=== PATIENT | female | born 1990 | race Caucasian/White ===

== ENCOUNTER 2025-10-06 12:00 | Inpatient (IN) | payer OTHER ==
[~2025-10-06] VITALS: Ht 157.5 cm; Wt 49.9 kg
[2025-10-06] MEDS ORDERED: PHENOBARBITAL SODIUM 130 MG/1 ML DISP.SYRIN ONE (12:27)
[2025-10-06] MEDS: PHENOBARBITAL SODIUM 130 MG/1 ML DISP.SYRIN IV ONE (12:28)
[2025-10-06] MEDS: IV NORMAL SALINE 1000 ML BAG IV ONE (12:28)
[2025-10-06 13:03] LABS: PLATELET COUNT (AUTO) 403 K/uL (179-408); RED BLOOD CELL COUNT(AUTO) 4.13 MIL/uL (3.63-4.92); RED CELL DISTRIBUTION WIDTH 15.3 % (12.3-17.7); WHITE BLOOD COUNT (AUTO) 12.1 K/uL (3.8-11.8)
[2025-10-06 13:13] LABS: CREATININE 0.8 mg/dL (0.6-1.3); SODIUM SERUM 138 mmol/L (136-145); UREA NITROGEN, BLOOD 13 mg/dL (7-18)
[2025-10-06 13:18] LABS: ASPARTATE AMINOTRANSFERASE 69 U/L (15-37); TOTAL PROTEIN, SERUM 8.3 g/dL (6.4-8.2)
[2025-10-06 13:23] LABS: PREGNANCY TEST SERUM QUAN < 1 miul/L (0-6)
[2025-10-06 13:24] LABS: ETHANOL 45.0 MG/DL (0-10)
[2025-10-06 13:25] VITALS: BP 111/79
[2025-10-06 13:32] LABS: LACTIC ACID 5.3 mmol/L (0.4-2.0)
[2025-10-06] MEDS ORDERED: METOCLOPRAMIDE HCL 10 MG/2 ML VIAL ONE (13:37)
[2025-10-06] MEDS ORDERED: diphenhydrAMINE 50 MG/1 ML VIAL ONE (13:37)
[2025-10-06 13:38] LABS: IRON, SERUM 123 ug/dL (50-175)
[2025-10-06] MEDS: diphenhydrAMINE 50 MG/1 ML VIAL IV ONE (13:38)
[2025-10-06] MEDS: METOCLOPRAMIDE HCL 10 MG/2 ML VIAL IV ONE (13:40)
[2025-10-06] MEDS ORDERED: CEFTRIAXONE /D5W 50ML IVPB **ER PYXIS IV ONE (13:55)
[2025-10-06 14:12] LABS: *BILIRUBIN,URIN NEGATIVE (NEGATIVE); *BLOOD, URINE 1+ (NEGATIVE); *COLOR,URINE LIGHT YELLOW (YELLOW); *KETONES,URINE 4+ (NEGATIVE); *PROTEIN,URINE NEGATIVE (NEGATIVE); *UROBILINOGEN,URINE 0.2 E.U./dl (NORMAL); LEUKOCYTE ESTERASE ,URINE NEGATIVE (NEGATIVE); NITRITE, URINE NEGATIVE (NEGATIVE); UGLUCOSE NEGATIVE (NEGATIVE)
[2025-10-06 14:14] LABS: *CLARITY,URINE HAZY (CLEAR)
[2025-10-06 14:24] LABS: *AMPHETAMINE, URINE NEGATIVE (NEGATIVE); *BARBITURATE, URINE POSITIVE (NEGATIVE); *BENZODIAZEPINE, URINE NEGATIVE (NEGATIVE); *CANNABINOID, URINE POSITIVE (NEGATIVE); *COCCAINE, URINE NEGATIVE (NEGATIVE); *OPIATE, URINE NEGATIVE (NEGATIVE); *PHENCYCLIDINE SCREEN,URINE NEGATIVE (NEGATIVE); FENTANYL, URINE NEGATIVE (NEGATIVE)
[2025-10-06 14:29] LABS: SQUAMOUS EPITHELIAL CELL,UR MODERATE /HPF (NONE SEEN)
[2025-10-06] MEDS ORDERED: NICOTINE 21 MG/24HR PATCH TD PRN (15:15)
[2025-10-06] MEDS ORDERED: LORAZEPAM 2 MG/1 ML VIAL IV PRN (15:15)
[2025-10-06] MEDS ORDERED: REMEDY ESSENTIAL ZINC PASTE 113 GM TP PRN (15:15)
[2025-10-06] MEDS ORDERED: MAGNESIUM HYDROXIDE 30 ML LIQUID UDC PO PRN (15:15)
[2025-10-06] MEDS: THIAMINE HCL INJ 100 MG in IV DEXTROSE 5% 50 ML IV SCH (15:22)
[2025-10-06] MEDS ORDERED: THIAMINE HCL 200 MG/2 ML VIAL ONE (15:24)
[2025-10-06] MEDS: IV D5 1/2 NS 1000 ML 1,000 ML IV SCH (15:31)
[2025-10-06] MEDS: FOLIC ACID 1 MG TABLET PO ONE (15:32)
[2025-10-06] MEDS ORDERED: FOLIC ACID 1 MG TABLET ONE (15:37)
[2025-10-06 16:18] VITALS: BP 128/71; TEMP 97.8; O2SAT 100
[2025-10-06] MEDS: CHLORDIAZEPOXIDE HCL 25 MG CAPSULE PO SCH (16:45)
[2025-10-06] MEDS ORDERED: THIAMINE HCL INJ 100 MG in IV DEXTROSE 5% 50 ML IV SCH (17:00)
[2025-10-06 19:15] VITALS: BP 111/70; TEMP 99.5; O2SAT 96
[2025-10-06] MEDS: ACETAMINOPHEN 325 MG TABLET PO PRN (21:14)
[2025-10-06] MEDS ORDERED: IBUPROFEN 400 MG TABLET PO PRN (21:30)
[2025-10-07] VITALS (7 sets, daily range): BP systolic 95–122; BP diastolic 56–76; TEMP 97.2–98.7; O2SAT 99–100
[2025-10-07] MEDS: ONDANSETRON 4 MG/2 ML VIAL IV PRN (05:25)
[2025-10-07] MEDS: PANTOPRAZOLE SODIUM 40 MG TABLET.DR PO SCH (06:10)
[2025-10-07 07:01] LABS: PLATELET COUNT (AUTO) 279 K/uL (179-408); RED BLOOD CELL COUNT(AUTO) 3.63 MIL/uL (3.63-4.92); RED CELL DISTRIBUTION WIDTH 14.5 % (12.3-17.7); WHITE BLOOD COUNT (AUTO) 7.3 K/uL (3.8-11.8)
[2025-10-07 07:04] LABS: CREATININE 0.5 mg/dL (0.6-1.3); SODIUM SERUM 133 mmol/L (136-145); UREA NITROGEN, BLOOD 5 mg/dL (7-18)
[2025-10-07] MEDS: FOLIC ACID 1 MG TABLET PO SCH (08:44)
[2025-10-07] MEDS: THIAMINE HCL 100 MG TABLET PO SCH (08:45)
[2025-10-07] MEDS: POTASSIUM CHLORIDE 20 MEQ TAB.PRT.SR PO ONE (09:32)
[2025-10-07] MEDS: NEUTRA PHOS PACKET PO ONE (15:09)
[2025-10-07] MEDS ORDERED: THIAMINE HCL INJ 100 MG in IV DEXTROSE 5% 50 ML IV SCH (17:00)
[2025-10-08] MEDS: MELATONIN 3 MG TABLET PO ONE (01:03)
[2025-10-08 05:31] VITALS: BP 97/60; TEMP 98.2; O2SAT 95
[2025-10-08 08:00] VITALS: BP 103/63; TEMP 98.1; O2SAT 99
[2025-10-08 09:28] LABS: PLATELET COUNT (AUTO) 300 K/uL (179-408); RED BLOOD CELL COUNT(AUTO) 3.96 MIL/uL (3.63-4.92); RED CELL DISTRIBUTION WIDTH 14.7 % (12.3-17.7); WHITE BLOOD COUNT (AUTO) 4.8 K/uL (3.8-11.8)
[2025-10-08 09:42] LABS: CREATININE 0.6 mg/dL (0.6-1.3); SODIUM SERUM 139.0 mmol/L (136-145); UREA NITROGEN, BLOOD 3.0 mg/dL (7-18)
[2025-10-08] MEDS ORDERED: THIA100T13 PO (11:12)
[2025-10-08] MEDS ORDERED: FOLI1TAB27 PO (11:12)
[2025-10-08] MEDS ORDERED: HYDR-501 PO (11:12)
[2025-10-08] MEDS ORDERED: CEFD300C3 PO (11:12)
[2025-10-08] MEDS: POTASSIUM CHLORIDE 20 MEQ TAB.PRT.SR PO ONE (11:15)
== END 2025-10-08 12:35 | disposition home or self-care (01) | DRG 720 ==
LOC: ER 12:00 → TELE3 16:01 → MEDSURG3 10-08 10:20
DX: A41.9 Sepsis, unspecified organism (principal); E87.29 Other acidosis; N39.0 Urinary tract infection, site not specified; F10.239 Alcohol dependence with withdrawal, unspecified; Y90.2 Blood alcohol level of 40-59 mg/100 ml; F17.210 Nicotine dependence, cigarettes, uncomplicated; F41.0 Panic disorder [episodic paroxysmal anxiety]; Z87.440 Personal history of urinary (tract) infections; Z88.0 Allergy status to penicillin; N92.0 Excessive and frequent menstruation with regular cycle; K06.8 Other specified disorders of gingiva and edentulous alveolar ridge; R07.89 Other chest pain
CPT/HCPCS: 36415; 71045; 83550; 83605; 83735; 84100; 84484; 85025; 85730; 87040; 87086; A4606; A4663; G0378; G0480; J0696; J1200; J2405; J2560; J2765; J3411; J7040